=== PATIENT | female | born 2000 | race Two or more races ===

== ENCOUNTER 2025-05-31 18:03 | Emergency (ER) | payer MEDICAID, SELFPAY ==
[2025-05-31 19:08] VITALS: BP 108/70; PULSE 61; RESP 16; TEMP 36.9; O2SAT 99
--- NOTE | 2025-05-31 19:14 | PD.EDSKIN ---
ED Skin Abcess FB-RME/HPI General Chief complaint: Hand/Wrist Problems Stated complaint: INFECTE HANG NAIL L) 4TH FINGER Time Seen by Provider: 05/31/25 19:12 Arrival date/time: 05/31/25 18:03 24F with no significant PMH presents to ED with L ring finger infection. Patient is currently on Keflex w/o improvement. Limitations: no limitations Related Data Previous Rx's ?Medication ?Instructions ?Recorded sulfamethoxazole 800 1 tab PO BID 7 days #14 tabs 05/31/25 mg-trimethoprim 160 mg tablet (Bactrim DS) Allergies Allergy/AdvReac Type Severity Reaction Status Date / Time No Known Allergies Allergy Verified 05/31/25 18:06 Review of Systems Review of Systems Systems Reviewed: All systems reviewed, normal except as documented Integumentary/Breasts Skin/Breast: Reports as per HPI and Reports skin pain Past Medical History Past Medical History CARDIAC: Negative Congestive Heart Failure RESPIRATORY: Negative Chronic Obstructive Pulmonary Disease (COPD) GENITOURINARY: Negative Renal Disease ENDOCRINE: Negative Diabetes Mellitus Type 1 or Diabetes Mellitus Type 2 Social History SMOKING STATUS: Never smoker ED Exam General Limitations: Present no limitations General appearance: Present alert and in no apparent distress Head Head exam: Present atraumatic Neck Neck exam: Present normal inspection, full ROM and trachea midline Chest Chest inspection: Present normal inspection and symmetric chest wall rise Extremities Exam Extremities exam: Present full ROM Expanded Upper Extremity Exam Hand exam: Present full ROM (L ring fingernail tip), tenderness, swelling and ecchymosis Psychiatric Psychiatric exam: Present normal affect and normal mood Skin Skin exam: Present warm, dry, intact and normal color Course Quality Measures none Orders Category Date Time Status Incision and Drainage Set Up X1 Care 05/31/25 19:13 Active Trimethoprim/Sulfa 160/800 Ds [Bactrim Ds] Med 05/31/25 19:13 Discontinued 1 tab PO X1 ONE Vital Signs Vital signs: Vital Signs Temperature 98.4 F 05/31/25 19:08 Pulse Rate 61 05/31/25 19:08 Respiratory Rate 16 05/31/25 19:08 Blood Pressure 108/70 05/31/25 19:08 Pulse Oximetry (%) 99 05/31/25 19:08 Oxygen Delivery Method Room Air 05/31/25 19:08 O2 at 99% on RA and WNLs PROCEDURES: Abscess I/D Site: hand Side (if applicable): left Sedation/analgesia: none Local Anesthetic: lidocaine 1% Amount of anesthesia used (mL): 1 Technique: needle aspiration Amount of fluid expressed (mL): 1 Irrigation: Yes Packing used?: none Complications: pain and bleeding Skin / Abscess / Foreign Body MDM Narrative MDM Narrative:: 24F with no significant PMH presents to ED with L ring finger infection. Patient is currently on Keflex w/o improvement. Physical exam reveals swelling/pustule around L ring fingernail. There is redness around it as well. Patient is afebrile, calm, and alert. I&D done. Meds and senior vice president & general counsel given, including to take Bactrim instead of Keflex. Patient data External records reviewed:: None Clinical information provided by:: patient Social determinants that could affect healthcare access:: none Patient has the following chronic illnesses:: none How is presenting disease/condition affected by chronic disease/condition?: no chronic disease Evaluation data The following diagnostics were reviewed and interpreted by me:: other (specify) (none) Lab and/or radiology exams considered but not ordered:: not ordered Interpretation Summary: n/a Medications / Prescriptions Medications or Prescriptions considered but not ordered:: ordered Medication administrations:: Medication Administration History Discontinued Medications Trimethoprim/Sulfamethoxazole (Trimethoprim/Sulfa 160/800 Ds Tablet) 1 tab PO X1 ONE Stop: 05/31/25 19:14 Last Admin: 05/31/25 19:20 Dose: 1 tab Documented By: OA above Consultations Consultation(s) initiated? (list below): No Diagnosis Skin/Abscess Differential Diagnosis: abscess of skin or subcutaneous tissue, viral exanthem, dermatophytosis, urticaria, herpes zoster, allergic reaction to drug, cellulitis, eczema, insect bites, impetigo, contact dermatitis and other (paronychia) Most likely diagnosis given after review of the tests above:: paronychia and cellulitis Admission Indicated Admission indicated?: not indicated Admission Request Was there a request for admission?: No Disposition Plan Disposition Plan: Discharge Discharge Attestation Discharge Attestation: The patient and all family members were given an opportunity to ask questions and understood the discharge instructions. Discharge instructions specifically effects, indications for sooner follow up or return to the emergency department, and the expected course of current diagnosis. Patient condition: Stable Discharge Plan Plan Patient Disposition: HOME (Self Care) Discharge Disposition comment: Stable Prescriptions/Referrals Prescriptions/Med Rec: New sulfamethoxazole-trimethoprim [Bactrim DS] 800-160 mg tablet 1 tab PO BID 7 Days Qty: 14 0RF Problem List Clinical Impression: Paronychia, Cellulitis Patient/Caregiver Discharge Instructions Education Materials: ED Cellulitis, ED Paronychia of the Finger or Toe Additional Instructions: Please follow-up with PCP within 24-48 hours and return immediately if symptoms worsen. Take Bactrim instead of Keflex. Print Language: Slovenian Stand Alone Forms: Patient Portal Info Letter PA/SURVEY RESEARCH TEACHER Supervising Physician PA/SURVEY RESEARCH TEACHER Supervising Physician: Dr. Mclain
[2025-05-31] MEDS: TRIMETHOPRIM/SULFA 160/800 DS TABLET 1 TAB PO (19:20)
== END 2025-05-31 19:49 | disposition home or self-care (01) ==
LOC: SERX 19:28
PROVIDERS: Emergency Provider Emergency Medicine; PCP Family Medicine
DX: L03.012 Cellulitis of left finger (principal)
CPT/HCPCS: 10160; 99284; A9270